=== PATIENT | male | born 1985 | race Caucasian/White ===

== ENCOUNTER 2023-10-26 23:45 | Inpatient (IN) | payer OTHER ==
[~2023-10-26] VITALS: Ht 167.6 cm; Wt 55.0 kg
[2023-10-26 23:40] VITALS: PULSE 72
[2023-10-27] VITALS (14 sets, daily range): BP systolic 108–177; BP diastolic 68–123; PULSE 74–120; RESP 12–20; TEMP 96.3–98.2; O2SAT 93–100
[2023-10-27] MEDS ORDERED: KCL 20 MEQ IN 100 mL PREMIX 200 ML IV PRN (00:30)
[2023-10-27] MEDS ORDERED: ONDANSETRON 4 MG/2 ML VIAL IVP PRN ×2 (00:30→19:10)
[2023-10-27] MEDS ORDERED: MAG SULF 2000 MG/WATER PREMIX 50 ML IV PRN (00:30)
[2023-10-27] MEDS: MORPHINE SULFATE 4 MG/ML SYR ONE (01:33)
[2023-10-27] MEDS: MORPHINE SULFATE 4 MG/ML SYR IVP PRN (01:33)
[2023-10-27 01:53] LABS: BASOPHILS % (AUTO) 0.2 % (0.0-2.0); EOSINOPHILS % (AUTO) 0.2 % (0.0-4.0); HEMATOCRIT 36.7 % (36-52); HEMOGLOBIN 12.2 g/dL (12.0-18.0); LYMPHOCYTES # (AUTO) 1.5 K/uL (2.0-11.5); LYMPHOCYTES % (AUTO) 11.5 % (20.5-51.1); MEAN CORPUSCULAR HEMOGLOBIN 27 pg (27-31); MEAN CORPUSCULAR HGB CONC 33 g/dL (33-37); MEAN CORPUSCULAR VOLUME 80.3 fL (80-94); NEUTROPHILS # (AUTO) 10.5 K/uL (1.8-7.7); NEUTROPHILS % (AUTO) 80.1 % (42.2-75.2); PLATELET COUNT (AUTO) 268 K/uL (140-450); RED BLOOD CELL COUNT(AUTO) 4.58 MIL/uL (4.20-6.10); RED CELL DISTRIBUTION WIDTH 25.3 % (11.6-13.7); WHITE BLOOD COUNT (AUTO) 13.1 K/uL (4.8-10.8)
[2023-10-27 02:05] LABS: ALBUMIN 3.2 g/dL (3.4-5.0); ANION GAP 10.3 (8-16); CALCIUM 8.9 mg/dL (8.5-10.1); CARBON DIOXIDE 30.2 mmol/L (21-32); CREATININE 0.6 mg/dL (0.6-1.3); POTASSIUM 3.5 mmol/L (3.5-5.1); TOTAL BILIRUBIN 0.3 mg/dL (0.0-1.0); TOTAL PROTEIN, SERUM 7.8 g/dL (6.4-8.2)
[2023-10-27] MEDS ORDERED: bisacodyL 10 MG SUPP RC PRN (08:30)
[2023-10-27] MEDS ORDERED: oxyCODONE 10 MG TABER PO PRN (08:30)
[2023-10-27] MEDS ORDERED: ONDANSETRON 4 MG TAB PO PRN (08:30)
[2023-10-27] MEDS ORDERED: HALOPERIDOL IM 5 MG/ML VIAL IM PRN (08:30)
[2023-10-27] MEDS ORDERED: HYDROXYZINE HYDROCHLORIDE 25 MG TAB PO PRN (08:30)
[2023-10-27] MEDS: DOCUSATE SODIUM 100 MG GELCAP PO SCH (09:00)
[2023-10-27] MEDS: POLYETHYLENE GLYCOL 17 GM/PKT PO SCH (09:00)
[2023-10-27] MEDS ORDERED: DULoxetine 30 MG CAPDR PO SCH (09:00)
[2023-10-27] MEDS: NACL 0.9% 1,000 ML IV SCH (09:06)
[2023-10-27] MEDS: FENTANYL C 0.05 MG/HR PATCH TD SCH (09:10)
[2023-10-27] MEDS ORDERED: NALOXONE 0.4 MG/ML VIAL IVP PRN (09:15)
[2023-10-27] MEDS: BACLOFEN 10 MG TAB PO SCH (09:39)
[2023-10-27] MEDS: MULTIVITAMIN/MINERALS 1 TAB PO SCH (09:40)
[2023-10-27] MEDS: ZINC SULF 220 MG CAP PO SCH (09:41)
[2023-10-27] MEDS: PANTOPRAZOLE 40 MG TABEC PO SCH (09:42)
[2023-10-27] MEDS: METHADONE 10 MG TAB PO SCH ×2 (09:42→21:27)
[2023-10-27] MEDS: PREGABALIN 50 MG CAP PO SCH (09:42)
[2023-10-27] MEDS: QUEtiapine FUMARATE 25 MG TAB PO SCH (11:14)
[2023-10-27] MEDS: tiZANidine 4 MG TAB PO SCH (11:21)
[2023-10-27] MEDS: DIVALPROEX 500 MG TABEC PO SCH (13:10)
[2023-10-27] MEDS: FERROUS SULFATE 325 MG TABEC PO SCH (13:11)
[2023-10-27] MEDS: GABAPENTIN 300 MG CAP PO SCH (13:11)
[2023-10-27] MEDS: MEDS-TO-BEDS MC SCH (15:17)
[2023-10-27] MEDS: LORazepam 2 MG/ML VIAL IVP PRN (15:19)
[2023-10-27] MEDS ORDERED: HYDROmorphone 1 MG/ML AMP ONE (18:00)
[2023-10-27] MEDS: hydrALAZINE 20 MG/ML VIAL IVP PRN (19:55)
[2023-10-27] MEDS: HYDROmorphone 1 MG/ML AMP IVP PRN (20:59)
[2023-10-27] MEDS: LOPERAMIDE 2 MG CAP PO SCH (21:00)
[2023-10-27] MEDS: DULoxetine 30 MG CAPDR PO SCH (21:26)
[2023-10-27] MEDS: MELATONIN 3 MG TAB PO SCH (21:28)
[2023-10-27] MEDS: SENNA 8.6 MG TAB PO SCH (21:30)
[2023-10-28] VITALS (7 sets, daily range): BP systolic 118–158; BP diastolic 60–111; PULSE 66–100; RESP 18–20; TEMP 97.4–99; O2SAT 78–100
[2023-10-28] MEDS: HYDROmorphone PFS 2 MG/ML SYR ONE (05:56)
[2023-10-28] MEDS: ROCURONIUM 50 MG/5 ML VIAL IV ONE (05:57)
[2023-10-28] MEDS: PROPOFOL 200 MG/20 ML VIAL IV ONE (05:57)
[2023-10-28] MEDS: ONDANSETRON 4 MG/2 ML VIAL ONE (05:58)
[2023-10-28] MEDS: hydrALAZINE 20 MG/ML VIAL ONE (05:58)
[2023-10-28] MEDS: ceFAZolin 1,000 MG VIAL ONE (05:58)
[2023-10-28] MEDS: DEXAMETHASONE 4 MG/ML VIAL ONE (05:58)
[2023-10-28 06:58] LABS: HEMATOCRIT 33.2 % (36-52); HEMOGLOBIN 11.1 g/dL (12.0-18.0); MEAN CORPUSCULAR HEMOGLOBIN 27 pg (27-31); MEAN CORPUSCULAR HGB CONC 33 g/dL (33-37); MEAN CORPUSCULAR VOLUME 80.8 fL (80-94); PLATELET COUNT (AUTO) 249 K/uL (140-450); RED BLOOD CELL COUNT(AUTO) 4.11 MIL/uL (4.20-6.10); RED CELL DISTRIBUTION WIDTH 25.3 % (11.6-13.7); WHITE BLOOD COUNT (AUTO) 11.4 K/uL (4.8-10.8)
[2023-10-28 08:27] LABS: ALBUMIN 2.7 g/dL (3.4-5.0); ANION GAP 11.3 (8-16); CALCIUM 8.4 mg/dL (8.5-10.1); CARBON DIOXIDE 29.2 mmol/L (21-32); CREATININE 0.5 mg/dL (0.6-1.3); MAGNESIUM 1.9 mg/dL (1.8-2.4); POTASSIUM 3.5 mmol/L (3.5-5.1); TOTAL BILIRUBIN 0.3 mg/dL (0.0-1.0); TOTAL PROTEIN, SERUM 6.8 g/dL (6.4-8.2)
[2023-10-28] MEDS: ASCORBIC ACID 500 MG TAB PO SCH (09:10)
[2023-10-28 09:56] LABS: LYMPHOCYTES % (MANUAL) 15 % (20-46); MONOCYTES % (MANUAL) 11 % (5-12)
[2023-10-28 09:58] LABS: ANISOCYTOSIS 1+; PLATELET ESTIMATE ADEQUATE
[2023-10-28] MEDS ORDERED: FOAM DRESSING TP PRN (15:10)
[2023-10-29 06:58] LABS: BASOPHILS % (AUTO) 0.7 % (0.0-2.0); EOSINOPHILS # (AUTO) 0.2 K/uL (0-0.4); EOSINOPHILS % (AUTO) 3.1 % (0.0-4.0); HEMATOCRIT 26.7 % (36-52); LYMPHOCYTES # (AUTO) 1.7 K/uL (2.0-11.5); LYMPHOCYTES % (AUTO) 31.3 % (20.5-51.1); MEAN CORPUSCULAR HEMOGLOBIN 28 pg (27-31); MEAN CORPUSCULAR HGB CONC 34 g/dL (33-37); MEAN CORPUSCULAR VOLUME 82.3 fL (80-94); MONOCYTES # (AUTO) 0.8 K/uL (0.8-1.0); MONOCYTES % (AUTO) 14.2 % (1.7-9.3); NEUTROPHILS # (AUTO) 2.8 K/uL (1.8-7.7); NEUTROPHILS % (AUTO) 50.7 % (42.2-75.2); PLATELET COUNT (AUTO) 140 K/uL (140-450); RED BLOOD CELL COUNT(AUTO) 3.24 MIL/uL (4.20-6.10); RED CELL DISTRIBUTION WIDTH 23.4 % (11.6-13.7); WHITE BLOOD COUNT (AUTO) 5.5 K/uL (4.8-10.8)
[2023-10-29 07:12] LABS: ALBUMIN 2.2 g/dL (3.4-5.0); ANION GAP 8.1 (8-16); CARBON DIOXIDE 30.1 mmol/L (21-32); CREATININE 0.6 mg/dL (0.6-1.3); MAGNESIUM 1.9 mg/dL (1.8-2.4); POTASSIUM 3.2 mmol/L (3.5-5.1); TOTAL BILIRUBIN 0.4 mg/dL (0.0-1.0); TOTAL PROTEIN, SERUM 5.7 g/dL (6.4-8.2)
[2023-10-29 08:00] VITALS: BP 99/54; PULSE 58; PULSE 66; RESP 18; TEMP 97.7; O2SAT 98
[2023-10-29] MEDS: POTASSIUM CHLORIDE 10 MEQ TABER PO PRN (13:31)
[2023-10-29] MEDS: FOAM DRESSING TP SCH (13:37)
[2023-10-29] MEDS: GAUZE TP SCH (13:37)
[2023-10-29 16:00] VITALS: BP 104/55; PULSE 60; RESP 18; TEMP 97.3; O2SAT 98
[2023-10-29 20:00] VITALS: PULSE 72; RESP 18; TEMP 97.7; O2SAT 99
[2023-10-30] VITALS: RESP 18
[2023-10-30 07:16] LABS: BASOPHILS % (AUTO) 0.4 % (0.0-2.0); EOSINOPHILS # (AUTO) 0.2 K/uL (0-0.4); EOSINOPHILS % (AUTO) 4.3 % (0.0-4.0); HEMATOCRIT 27.3 % (36-52); LYMPHOCYTES # (AUTO) 1.3 K/uL (2.0-11.5); LYMPHOCYTES % (AUTO) 28.1 % (20.5-51.1); MEAN CORPUSCULAR HEMOGLOBIN 28 pg (27-31); MEAN CORPUSCULAR HGB CONC 33 g/dL (33-37); MONOCYTES # (AUTO) 0.5 K/uL (0.8-1.0); MONOCYTES % (AUTO) 11.1 % (1.7-9.3); NEUTROPHILS # (AUTO) 2.5 K/uL (1.8-7.7); NEUTROPHILS % (AUTO) 56.1 % (42.2-75.2); PLATELET COUNT (AUTO) 145 K/uL (140-450); RED BLOOD CELL COUNT(AUTO) 3.29 MIL/uL (4.20-6.10); RED CELL DISTRIBUTION WIDTH 22.9 % (11.6-13.7); WHITE BLOOD COUNT (AUTO) 4.5 K/uL (4.8-10.8)
[2023-10-30 07:31] LABS: CALCIUM 7.8 mg/dL (8.5-10.1); CARBON DIOXIDE 29.3 mmol/L (21-32); CREATININE 0.5 mg/dL (0.6-1.3); MAGNESIUM 1.8 mg/dL (1.8-2.4); POTASSIUM 3.3 mmol/L (3.5-5.1); TOTAL BILIRUBIN 0.3 mg/dL (0.0-1.0); TOTAL PROTEIN, SERUM 5.6 g/dL (6.4-8.2)
[2023-10-30 08:00] VITALS: BP 114/72; PULSE 66; RESP 18; TEMP 98.1; O2SAT 98
[2023-10-30 16:00] VITALS: BP 104/59; PULSE 69; RESP 18; TEMP 97.8; O2SAT 98
[2023-10-30 20:00] VITALS: PULSE 74; RESP 18; TEMP 98.4; O2SAT 97
[2023-10-30] MEDS: CRUSHER, PILL MC ONE (20:53)
[2023-10-31 07:37] LABS: ALBUMIN 2.2 g/dL (3.4-5.0); ANION GAP 12.3 (8-16); CALCIUM 7.8 mg/dL (8.5-10.1); CARBON DIOXIDE 26.1 mmol/L (21-32); CREATININE 0.5 mg/dL (0.6-1.3); MAGNESIUM 1.8 mg/dL (1.8-2.4); POTASSIUM 3.4 mmol/L (3.5-5.1); TOTAL BILIRUBIN 0.3 mg/dL (0.0-1.0); TOTAL PROTEIN, SERUM 6.1 g/dL (6.4-8.2)
[2023-10-31 07:39] LABS: BASOPHILS % (AUTO) 0.5 % (0.0-2.0); EOSINOPHILS % (AUTO) 0.2 % (0.0-4.0); HEMATOCRIT 28.5 % (36-52); HEMOGLOBIN 9.7 g/dL (12.0-18.0); LYMPHOCYTES # (AUTO) 0.9 K/uL (2.0-11.5); LYMPHOCYTES % (AUTO) 20.7 % (20.5-51.1); MEAN CORPUSCULAR HEMOGLOBIN 28 pg (27-31); MEAN CORPUSCULAR HGB CONC 34 g/dL (33-37); MEAN CORPUSCULAR VOLUME 83.6 fL (80-94); MONOCYTES # (AUTO) 0.4 K/uL (0.8-1.0); MONOCYTES % (AUTO) 9.1 % (1.7-9.3); NEUTROPHILS # (AUTO) 3.2 K/uL (1.8-7.7); NEUTROPHILS % (AUTO) 69.5 % (42.2-75.2); PLATELET COUNT (AUTO) 188 K/uL (140-450); RED BLOOD CELL COUNT(AUTO) 3.41 MIL/uL (4.20-6.10); RED CELL DISTRIBUTION WIDTH 22.8 % (11.6-13.7); WHITE BLOOD COUNT (AUTO) 4.6 K/uL (4.8-10.8)
[2023-10-31 08:00] VITALS: PULSE 66; TEMP 97.7
[2023-10-31] MEDS ORDERED: MELA3TAB21 PO (14:09)
[2023-10-31] MEDS ORDERED: DULO30EC PO (14:09)
[2023-10-31] MEDS ORDERED: BACL10TA4 PO (14:09)
[2023-10-31] MEDS ORDERED: DIVA500E2 PO (14:09)
[2023-10-31] MEDS ORDERED: GABA300C PO (14:09)
[2023-10-31] MEDS ORDERED: FER325 PO (14:09)
[2023-10-31] MEDS ORDERED: TIZA-313 PO (14:09)
[2023-10-31] MEDS ORDERED: QUET25TA46 PO (14:09)
[2023-10-31] MEDS ORDERED: PANT40EC56 PO (14:09)
[2023-10-31] MEDS ORDERED: LYR50 PO (14:09)
[2023-10-31 20:00] VITALS: BP 114/68; PULSE 68; PULSE 74; RESP 17; RESP 18; TEMP 98; O2SAT 97; O2SAT 99
[2023-11-01] MEDS: BUPIVACAINE-MPF 0.25% 30 ML VIAL INJ ONE ×3 (00:04→00:10)
[2023-11-01] MEDS: MIDAZOLAM 2 MG/2 ML VIAL ONE (00:05)
[2023-11-01] MEDS: fentaNYL citrate 0.05 MG/ML VIAL ONE (00:06)
[2023-11-01 04:00] VITALS: BP 114/71; PULSE 61; RESP 16; TEMP 97.2; O2SAT 98
[2023-11-01 06:41] LABS: BASOPHILS % (AUTO) 0.5 % (0.0-2.0); EOSINOPHILS # (AUTO) 0.1 K/uL (0-0.4); EOSINOPHILS % (AUTO) 2.4 % (0.0-4.0); HEMATOCRIT 26.4 % (36-52); HEMOGLOBIN 8.6 g/dL (12.0-18.0); LYMPHOCYTES # (AUTO) 1.4 K/uL (2.0-11.5); LYMPHOCYTES % (AUTO) 30.7 % (20.5-51.1); MEAN CORPUSCULAR HEMOGLOBIN 27 pg (27-31); MEAN CORPUSCULAR HGB CONC 33 g/dL (33-37); MEAN CORPUSCULAR VOLUME 83.3 fL (80-94); MONOCYTES # (AUTO) 0.5 K/uL (0.8-1.0); MONOCYTES % (AUTO) 10.7 % (1.7-9.3); NEUTROPHILS # (AUTO) 2.5 K/uL (1.8-7.7); NEUTROPHILS % (AUTO) 55.7 % (42.2-75.2); PLATELET COUNT (AUTO) 161 K/uL (140-450); RED BLOOD CELL COUNT(AUTO) 3.17 MIL/uL (4.20-6.10); RED CELL DISTRIBUTION WIDTH 22.5 % (11.6-13.7); WHITE BLOOD COUNT (AUTO) 4.6 K/uL (4.8-10.8)
[2023-11-01 07:12] LABS: ALBUMIN 1.9 g/dL (3.4-5.0); ANION GAP 9.7 (8-16); CALCIUM 7.6 mg/dL (8.5-10.1); CARBON DIOXIDE 27.8 mmol/L (21-32); CREATININE 0.5 mg/dL (0.6-1.3); MAGNESIUM 1.8 mg/dL (1.8-2.4); POTASSIUM 3.5 mmol/L (3.5-5.1); TOTAL BILIRUBIN 0.2 mg/dL (0.0-1.0); TOTAL PROTEIN, SERUM 5.4 g/dL (6.4-8.2)
[2023-11-01 08:00] VITALS: BP 109/69; PULSE 63; RESP 17; TEMP 97.7; O2SAT 97
[2023-11-01 20:00] VITALS: BP 97/49; PULSE 57; RESP 18; TEMP 97.6; O2SAT 98
[2023-11-02] VITALS: BP 123/79; PULSE 77; RESP 18; TEMP 97.9; O2SAT 98
[2023-11-02 04:00] VITALS: BP 190/111; PULSE 77; RESP 18; TEMP 98.3; O2SAT 98
[2023-11-02 08:00] VITALS: BP 96/64; PULSE 57; PULSE 70; RESP 17; TEMP 97.6; TEMP 97.8; O2SAT 100
[2023-11-02] MEDS: HYDROcodone/APAP 5/325 MG 1 TAB TAB PO PRN (13:50)
[2023-11-02 20:00] VITALS: BP_SYST 102; BP_SYST 97; BP_DIAS 49; PULSE 57; PULSE 60; RESP 18; TEMP 97.3; TEMP 97.6; O2SAT 98
[2023-11-03] VITALS: BP 98/53; PULSE 69; RESP 18; TEMP 98.2; O2SAT 98
[2023-11-03 06:23] LABS: BASOPHILS % (AUTO) 0.3 % (0.0-2.0); EOSINOPHILS # (AUTO) 0.1 K/uL (0-0.4); EOSINOPHILS % (AUTO) 2.3 % (0.0-4.0); HEMATOCRIT 30.7 % (36-52); HEMOGLOBIN 10.2 g/dL (12.0-18.0); LYMPHOCYTES # (AUTO) 1.5 K/uL (2.0-11.5); LYMPHOCYTES % (AUTO) 24.1 % (20.5-51.1); MEAN CORPUSCULAR HEMOGLOBIN 28 pg (27-31); MEAN CORPUSCULAR HGB CONC 33 g/dL (33-37); MEAN CORPUSCULAR VOLUME 83.7 fL (80-94); MONOCYTES # (AUTO) 0.5 K/uL (0.8-1.0); MONOCYTES % (AUTO) 7.6 % (1.7-9.3); NEUTROPHILS % (AUTO) 65.7 % (42.2-75.2); PLATELET COUNT (AUTO) 190 K/uL (140-450); RED BLOOD CELL COUNT(AUTO) 3.67 MIL/uL (4.20-6.10); RED CELL DISTRIBUTION WIDTH 22.1 % (11.6-13.7); WHITE BLOOD COUNT (AUTO) 6.1 K/uL (4.8-10.8)
[2023-11-03 06:44] LABS: ALBUMIN 2.5 g/dL (3.4-5.0); CALCIUM 8.2 mg/dL (8.5-10.1); CREATININE 0.6 mg/dL (0.6-1.3); MAGNESIUM 1.6 mg/dL (1.8-2.4); TOTAL BILIRUBIN 0.2 mg/dL (0.0-1.0); TOTAL PROTEIN, SERUM 6.5 g/dL (6.4-8.2)
[2023-11-03 07:48] VITALS: PULSE 68
[2023-11-03 07:49] VITALS: TEMP 97.8
[2023-11-03 08:00] VITALS: BP 81/40; PULSE 52; RESP 18; TEMP 97.3; O2SAT 100
[2023-11-03 16:00] VITALS: BP 90/54; PULSE 59; RESP 18; TEMP 98.1; O2SAT 99
[2023-11-03 20:00] VITALS: BP 94/53; PULSE 57; RESP 16; TEMP 97.5; O2SAT 100
[2023-11-04 04:00] VITALS: BP 104/67; PULSE 59; RESP 18; TEMP 97.6; O2SAT 100
[2023-11-04] MEDS: MORPHINE SULFATE 2 MG/ML SYR IVP PRN (04:43)
[2023-11-04 07:07] LABS: EOSINOPHILS # (AUTO) 0.1 K/uL (0-0.4); EOSINOPHILS % (AUTO) 3.2 % (0.0-4.0); HEMATOCRIT 30.7 % (36-52); LYMPHOCYTES # (AUTO) 1.2 K/uL (2.0-11.5); MEAN CORPUSCULAR HEMOGLOBIN 28 pg (27-31); MEAN CORPUSCULAR HGB CONC 33 g/dL (33-37); MEAN CORPUSCULAR VOLUME 84.6 fL (80-94); MONOCYTES # (AUTO) 0.3 K/uL (0.8-1.0); MONOCYTES % (AUTO) 10.1 % (1.7-9.3); NEUTROPHILS # (AUTO) 1.7 K/uL (1.8-7.7); NEUTROPHILS % (AUTO) 50.7 % (42.2-75.2); PLATELET COUNT (AUTO) 159 K/uL (140-450); RED BLOOD CELL COUNT(AUTO) 3.63 MIL/uL (4.20-6.10); RED CELL DISTRIBUTION WIDTH 21.7 % (11.6-13.7); WHITE BLOOD COUNT (AUTO) 3.4 K/uL (4.8-10.8)
[2023-11-04 07:26] VITALS: PULSE 62
[2023-11-04 07:27] VITALS: TEMP 96.9
[2023-11-04 07:38] LABS: ALBUMIN 1.9 g/dL (3.4-5.0); ANION GAP 10.7 (8-16); CALCIUM 7.7 mg/dL (8.5-10.1); CARBON DIOXIDE 28.5 mmol/L (21-32); CREATININE 0.4 mg/dL (0.6-1.3); MAGNESIUM 1.6 mg/dL (1.8-2.4); POTASSIUM 3.2 mmol/L (3.5-5.1); TOTAL BILIRUBIN 0.1 mg/dL (0.0-1.0); TOTAL PROTEIN, SERUM 5.4 g/dL (6.4-8.2)
[2023-11-04 08:00] VITALS: BP 111/72; PULSE 56; RESP 18; TEMP 97.4; O2SAT 99
[2023-11-04] MEDS: LORazepam 2 MG/ML VIAL ONE (10:07)
[2023-11-04 16:00] VITALS: BP 97/57; PULSE 61; RESP 18; TEMP 98.6; O2SAT 99
[2023-11-04] MEDS: MAGNESIUM OXIDE 400 MG TAB PO PRN (17:55)
[2023-11-04 20:00] VITALS: BP 96/77; PULSE 62; PULSE 75; RESP 18; TEMP 97.7; O2SAT 96
[2023-11-05 04:00] VITALS: BP 101/62; PULSE 63; RESP 19; TEMP 97.8; O2SAT 96
[2023-11-05 07:02] LABS: BASOPHILS % (AUTO) 0.9 % (0.0-2.0); EOSINOPHILS # (AUTO) 0.1 K/uL (0-0.4); EOSINOPHILS % (AUTO) 2.3 % (0.0-4.0); HEMATOCRIT 28.3 % (36-52); HEMOGLOBIN 9.3 g/dL (12.0-18.0); LYMPHOCYTES # (AUTO) 1.5 K/uL (2.0-11.5); LYMPHOCYTES % (AUTO) 30.1 % (20.5-51.1); MEAN CORPUSCULAR HEMOGLOBIN 28 pg (27-31); MEAN CORPUSCULAR HGB CONC 33 g/dL (33-37); MEAN CORPUSCULAR VOLUME 84.1 fL (80-94); MONOCYTES # (AUTO) 0.4 K/uL (0.8-1.0); MONOCYTES % (AUTO) 8.1 % (1.7-9.3); NEUTROPHILS # (AUTO) 2.8 K/uL (1.8-7.7); NEUTROPHILS % (AUTO) 58.6 % (42.2-75.2); PLATELET COUNT (AUTO) 170 K/uL (140-450); RED BLOOD CELL COUNT(AUTO) 3.36 MIL/uL (4.20-6.10); RED CELL DISTRIBUTION WIDTH 21.6 % (11.6-13.7); WHITE BLOOD COUNT (AUTO) 4.8 K/uL (4.8-10.8)
[2023-11-05 07:48] LABS: ALBUMIN 2.1 g/dL (3.4-5.0); ANION GAP 9.4 (8-16); CARBON DIOXIDE 30.2 mmol/L (21-32); CREATININE 0.3 mg/dL (0.6-1.3); MAGNESIUM 1.6 mg/dL (1.8-2.4); POTASSIUM 3.6 mmol/L (3.5-5.1); TOTAL BILIRUBIN 0.1 mg/dL (0.0-1.0); TOTAL PROTEIN, SERUM 5.8 g/dL (6.4-8.2)
[2023-11-05 08:00] VITALS: BP 129/83; PULSE 98; RESP 18; TEMP 97.9; O2SAT 100
[2023-11-05] MEDS: METHADONE 10 MG TAB PO SCH (10:39)
[2023-11-05] MEDS: LORazepam 2 MG/ML VIAL IVP PRN (10:44)
[2023-11-05 20:00] VITALS: BP 127/72; PULSE 83; RESP 18; TEMP 97.8; O2SAT 97
[2023-11-06 06:27] LABS: BASOPHILS % (AUTO) 0.5 % (0.0-2.0); EOSINOPHILS # (AUTO) 0.2 K/uL (0-0.4); EOSINOPHILS % (AUTO) 3.2 % (0.0-4.0); HEMATOCRIT 29.7 % (36-52); LYMPHOCYTES # (AUTO) 1.8 K/uL (2.0-11.5); LYMPHOCYTES % (AUTO) 38.7 % (20.5-51.1); MEAN CORPUSCULAR HEMOGLOBIN 28 pg (27-31); MEAN CORPUSCULAR HGB CONC 34 g/dL (33-37); MEAN CORPUSCULAR VOLUME 83.3 fL (80-94); MONOCYTES # (AUTO) 0.4 K/uL (0.8-1.0); MONOCYTES % (AUTO) 8.8 % (1.7-9.3); NEUTROPHILS # (AUTO) 2.3 K/uL (1.8-7.7); NEUTROPHILS % (AUTO) 48.8 % (42.2-75.2); PLATELET COUNT (AUTO) 179 K/uL (140-450); RED BLOOD CELL COUNT(AUTO) 3.56 MIL/uL (4.20-6.10); RED CELL DISTRIBUTION WIDTH 21.4 % (11.6-13.7); WHITE BLOOD COUNT (AUTO) 4.8 K/uL (4.8-10.8)
[2023-11-06 06:40] LABS: ALBUMIN 2.4 g/dL (3.4-5.0); ANION GAP 9.2 (8-16); CALCIUM 8.2 mg/dL (8.5-10.1); CARBON DIOXIDE 30.6 mmol/L (21-32); CREATININE 0.6 mg/dL (0.6-1.3); MAGNESIUM 1.8 mg/dL (1.8-2.4); POTASSIUM 3.8 mmol/L (3.5-5.1); TOTAL BILIRUBIN 0.2 mg/dL (0.0-1.0); TOTAL PROTEIN, SERUM 6.3 g/dL (6.4-8.2)
[2023-11-06 08:00] VITALS: BP 110/77; PULSE 60; RESP 17; TEMP 98.5; O2SAT 98
[2023-11-06 16:00] VITALS: BP 95/56; PULSE 63; RESP 19; TEMP 97.6; O2SAT 98
[2023-11-06 20:00] VITALS: BP 96/57; PULSE 71; RESP 18; TEMP 98.1; TEMP 98.2; O2SAT 98
[2023-11-07] VITALS: BP 147/108; PULSE 92; RESP 20; TEMP 97.9; O2SAT 98
[2023-11-07 04:00] VITALS: BP 103/58; PULSE 77; RESP 18; TEMP 98.3; O2SAT 98
[2023-11-07 06:40] LABS: BASOPHILS % (AUTO) 0.8 % (0.0-2.0); EOSINOPHILS # (AUTO) 0.2 K/uL (0-0.4); HEMATOCRIT 27.3 % (36-52); HEMOGLOBIN 9.1 g/dL (12.0-18.0); LYMPHOCYTES # (AUTO) 1.4 K/uL (2.0-11.5); LYMPHOCYTES % (AUTO) 28.8 % (20.5-51.1); MEAN CORPUSCULAR HEMOGLOBIN 28 pg (27-31); MEAN CORPUSCULAR HGB CONC 33 g/dL (33-37); MEAN CORPUSCULAR VOLUME 83.7 fL (80-94); MONOCYTES # (AUTO) 0.4 K/uL (0.8-1.0); NEUTROPHILS # (AUTO) 2.8 K/uL (1.8-7.7); NEUTROPHILS % (AUTO) 58.4 % (42.2-75.2); PLATELET COUNT (AUTO) 169 K/uL (140-450); RED BLOOD CELL COUNT(AUTO) 3.26 MIL/uL (4.20-6.10); RED CELL DISTRIBUTION WIDTH 20.8 % (11.6-13.7); WHITE BLOOD COUNT (AUTO) 4.8 K/uL (4.8-10.8)
[2023-11-07 06:56] LABS: ALBUMIN 2.1 g/dL (3.4-5.0); ANION GAP 8.8 (8-16); CREATININE 0.5 mg/dL (0.6-1.3); MAGNESIUM 1.7 mg/dL (1.8-2.4); POTASSIUM 3.8 mmol/L (3.5-5.1); TOTAL BILIRUBIN 0.2 mg/dL (0.0-1.0); TOTAL PROTEIN, SERUM 5.6 g/dL (6.4-8.2)
[2023-11-07 07:57] VITALS: PULSE 69; TEMP 97.9
[2023-11-07 08:00] VITALS: BP 96/57; PULSE 51; RESP 16; TEMP 97.6; O2SAT 97
[2023-11-07 16:00] VITALS: BP 98/63; PULSE 56; RESP 18; TEMP 98; O2SAT 100
[2023-11-07 17:44] VITALS: BP 98/63; PULSE 56; RESP 18; TEMP 98
== END 2023-11-07 19:16 | DRG 710 ==
LOC: MIC 23:45 → MTU 10-27 12:13
PROVIDERS: ADMIT Internal Medicine; ATTEND Internal Medicine
PROC: 0D1E0Z4 Bypass Large Intestine to Cutaneous, Open Approach (ICD-10-PCS; 2023-10-27)
PROC: 0DBE0ZZ Excision of Large Intestine, Open Approach (ICD-10-PCS; principal; 2023-10-27 17:30)
DX: A41.9 Sepsis, unspecified organism (principal); L89.213 Pressure ulcer of right hip, stage 3; E44.0 Moderate protein-calorie malnutrition; G82.20 Paraplegia, unspecified; K43.2 Incisional hernia without obstruction or gangrene; K63.4 Enteroptosis; K56.7 Ileus, unspecified; I10 Essential (primary) hypertension; F32.A Depression, unspecified; F41.9 Anxiety disorder, unspecified; D64.9 Anemia, unspecified; G89.4 Chronic pain syndrome; Z93.3 Colostomy status; Z68.1 Body mass index [BMI] 19.9 or less, adult
CPT/HCPCS: 36415; 71045; 74018; 80053; 82948; 83735; 85025; 87081; 88307; J0360; J0690; J0694; J1100; J1170; J1644; J2060; J2250; J2270; J2405; J2704; J2710; J3010; J3490; J7120; Q0162; Q9967